=== PATIENT | male | born 1990 | race Two or more races ===

== ENCOUNTER 2016-09-19 20:18 | Emergency (ER) | payer SELFPAY ==
[~2016-09-19] VITALS: Ht 170.2 cm; Wt 70.3 kg
[2016-09-19 20:35] VITALS: BP 137/72
== END 2016-09-19 21:00 | disposition home or self-care (01) ==
LOC: ER 20:21
DX: S19.9XXA Unspecified injury of neck, initial encounter (principal); F17.200 Nicotine dependence, unspecified, uncomplicated; Z98.890 Other specified postprocedural states; V49.49XA Driver injured in collision with other motor vehicles in traffic accident, initial encounter; Y93.89 Activity, other specified; Y92.89 Other specified places as the place of occurrence of the external cause; Y99.9 Unspecified external cause status
CPT/HCPCS: A4606; Z7610